=== PATIENT | female | born 1965 | race American Indian/Alaskan Native ===

== ENCOUNTER 2018-09-01 19:59 | Emergency (ER) | payer OTHER ==
[2018-09-01] MEDS ORDERED: IBUPROFEN 400 MG TAB ONE (21:30)
[2018-09-01] MEDS ORDERED: IBUPROFEN 200 MG TAB PO ONE (21:31)
--- NOTE | 2018-09-01 22:45 | ER ---
Nurse's Notes [facility] Name: Deyanira Grey Age: 52 yrs Sex: Female : 1965 Arrival Date: 09/01/2018 Time: 20:17 Bed 18 Private MD: Diagnosis: Cough;Fever, unspecified Presentation: 09/01 20:18 Presenting complaint: Child states: Patient has cough, headache, sore throat since lp1 yesterday; States her roommate was recently diagnosed with the Flu. Transition of care: patient was not received from another setting of care. Onset of symptoms was September 01, 2018. Risk Assessment: Do you want to hurt yourself or someone else? Patient reports no desire to harm self or others. Initial Sepsis Screen: Does the patient meet any 2 criteria? No. Patient's initial sepsis screen is negative. Does the patient have a suspected source of infection? No. Patient's initial sepsis screen is negative. Care prior to arrival: None. 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 - Social history:: Smoking status: Patient/guardian denies using tobacco. - Ebola Screening: : No symptoms or risks identified at this time. Screenin:21 Abuse screen: Denies threats or abuse. Denies injuries from another. Nutritional lp1 screening: No deficits noted. Tuberculosis screening: No symptoms or risk factors identified. Fall Risk None identified. Assessment: 20:25 General: Appears in no apparent distress. comfortable, Behavior is calm, cooperative, ca1 appropriate for age. Pain: Denies pain. Neuro: Level of Consciousness is awake, alert, obeys commands, Oriented to person, place, time, situation. Cardiovascular: Heart tones S1 S2 present Capillary refill < 3 seconds Patient's skin is warm and dry. Respiratory: Airway is patent Respiratory effort is even, unlabored, Respiratory pattern is regular, symmetrical, Breath sounds are clear bilaterally. GI: Abdomen is flat, non-distended, Bowel sounds present X 4 quads. Abd is soft and non tender X 4 quads. : No deficits noted. No signs and/or symptoms were reported regarding the genitourinary system. EENT: No deficits noted. No signs and/or symptoms were reported regarding the EENT system. Derm: Skin is intact, is healthy with good turgor, Skin is pink, warm \T\ dry. Musculoskeletal: Circulation, motion, and sensation intact. Capillary refill < 3 seconds. 21:00 Reassessment: Pt ambulated to restroom for BM. No gait disturbance noted. ca1 21:10 Reassessment: Patient appears in no apparent distress at this time. Patient is alert, ca1 oriented x 3, equal unlabored respirations, skin warm/dry/pink. 22:00 Reassessment: Patient appears in no apparent distress at this time. Patient is alert, ca1 oriented x 3, equal unlabored respirations, skin warm/dry/pink. Pt on videocall with friends and family. 22:50 Reassessment: Kept for observation after Rocephin shot. ca1 23:00 Reassessment: Patient appears in no apparent distress at this time. Patient is alert, ca1 oriented x 3, equal unlabored respirations, skin warm/dry/pink. 23:30 Reassessment: Patient understands discharge; Waiting for friend to arrive for ride home.lp1 Vital Signs: 20:20 BP 146 / 102; Pulse 97; Resp 18; Temp 100(O); Pulse Ox 98% on R/A; Weight 56.7 kg; lp1 Height 4 ft. 11 in. (149.86 cm); 21:25 BP 146 / 78; Pulse 65; Resp 17 S; Pulse Ox 98% on R/A; ca1 21:25 BP 144 / 89; Pulse 80; Resp 17 S; Temp 98.4(O); Pulse Ox 99% on R/A; ca1 22:00 BP 156 / 89; Pulse 96; Resp 18 S; Pulse Ox 98% on R/A; ca1 22:44 Temp 98.5(O); ca1 22:45 BP 146 / 81; Pulse 85; Resp 16 S; Temp 98.4(O); Pulse Ox 98% on R/A; ca1 23:35 BP 114 / 80; Pulse 72; Resp 18; Temp 98.9(O); Pulse Ox 98% on R/A; lp1 20:20 Body Mass Index 25.25 (56.70 kg, 149.86 cm) lp1 ED Course: 20:17 Patient arrived in ED. la1 20:20 Triage completed. lp1 20:20 Arm band placed on left wrist. lp1 20:30 Report given to JI Roberson. lp1 20:32 Patient has correct armband on for positive identification. Bed in low position. Call ca1 light in reach. Side rails up X2. Pulse ox on. NIBP on. Warm blanket given. 20:45 Karol Palafox RN is Primary Nurse. ca1 20:57 Deni Melo PA is PHCP. [facility] 20:57 Gordo Bernardo MD is Attending Physician. [facility] 22:15 No provider procedures requiring assistance completed. Urine collected: clean catch ca1 specimen, clear, Amount Voided: 180mL. Patient did not have IV access during this emergency room visit. 22:16 Chest Pa And Lat (2 Views) XRAY In Process Unspecified. EDMS Administered Medications: 21:20 Drug: Motrin Suspension 10 mg/kg Route: PO; ca1 22:44 Follow up: Temp 98.5 Oral; Response: No adverse reaction; Temperature is decreased ca1 22:50 Drug: Rocephin (cefTRIAXone) 1 grams Route: IM; Site: right gluteus; ca1 23:04 Follow up: Response: No adverse reaction ca1 Outcome: 22:44 Discharge ordered by . [facility] 23:45 Condition: good lp1 23:45 Discharge instructions given to patient, Instructed on discharge instructions, follow up and referral plans. medication usage, Demonstrated understanding of instructions, follow-up care, medications, Prescriptions given X 1. 09/02 00:22 Patient left the ED. bb Signatures: Dispatcher [employer] EDMS Deni Melo PA PA jmm Ballard, Brenda, RN RN bb Alaina Pisano RN RN lp1 Jeffery Hebert RN RN la1 Karol Palafox RN RN ca1 Corrections: (The following items were deleted from the chart) 09/01 20:22 20:21 PMHx: None; lp1 lp1 20:24 20:20 BP 146 / 102; Pulse 97bpm; Resp 18bpm; Pulse Ox 98% RA; 56.7 kg; Height 4 ft. 11 lp1 in.; BMI: 25.2; lp1
--- NOTE | 2018-09-01 22:45 | EDPHYS ---
Physician Documentation [facility] Name: Deyanira Grey Age: 52 yrs Sex: Female : 1965 Arrival Date: 09/01/2018 Time: 20:17 Bed 18 Private MD: ED Physician Gordo Bernardo HPI: 09/01 20:58 This 52 yrs old Other Female presents to ER via EMS with complaints of Flu Symptoms. jmm 20:58 The patient or guardian reports cough. Onset: The symptoms/episode began/occurred jmm gradually. This is a 52 year old female who presents to the ED with complaints of cough, congestion, headache, sore throat beginning yesterday worsening today with fever. Patient denies abdominal pain, denies vomiting, denies diarrhea. Patient states approx 6 days ago a friend of hers with similar symptoms coughed on her and hugged her. . 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 - Social history:: Smoking status: Patient/guardian denies using tobacco. - Ebola Screening: : No symptoms or risks identified at this time. ROS: 20:58 Constitutional: Negative for fever, chills, and weight loss, Cardiovascular: Negative jmm for chest pain, palpitations, and edema. 20:58 ENT: Positive for sore throat. 20:58 Respiratory: Positive for cough. 20:58 Abdomen/GI: Negative for abdominal pain. 20:58 Neuro: Positive for headache. 20:58 All other systems are negative. Exam: 20:58 Head/Face: atraumatic. Eyes: EOMI, no conjunctival erythema appreciated ENT: Moist jmm Mucus Membranes Neck: Trachea midline, Supple Chest/axilla: Normal chest wall appearance and motion. Cardiovascular: Regular rate and rhythm. No edema appreciated Respiratory: Normal respirations, no respiratory distress appreciated Abdomen/GI: Non distended, soft Back: Normal ROM Skin: General appearance color normal MS/ Extremity: Moves all extremities, no obvious deformities appreciated, no edema noted to the lower extremities Neuro: Awake and alert, normal gait Psych: Behavior is normal, Mood is normal, Patient is cooperative and pleasant 20:58 Constitutional: The patient appears in no acute distress, alert, awake. 20:58 ENT: TM's: erythema, that is mild, bilaterally, Posterior pharynx: erythema, that is jm mild. 20:58 Respiratory: the patient does not display signs of respiratory distress, Respirations: normal, Breath sounds: are clear throughout. Vital Signs: 20:20 BP 146 / 102; Pulse 97; Resp 18; Temp 100(O); Pulse Ox 98% on R/A; Weight 56.7 kg; lp1 Height 4 ft. 11 in. (149.86 cm); 21:25 BP 146 / 78; Pulse 65; Resp 17 S; Pulse Ox 98% on R/A; ca1 21:25 BP 144 / 89; Pulse 80; Resp 17 S; Temp 98.4(O); Pulse Ox 99% on R/A; ca1 22:00 BP 156 / 89; Pulse 96; Resp 18 S; Pulse Ox 98% on R/A; ca1 22:44 Temp 98.5(O); ca1 22:45 BP 146 / 81; Pulse 85; Resp 16 S; Temp 98.4(O); Pulse Ox 98% on R/A; ca1 23:35 BP 114 / 80; Pulse 72; Resp 18; Temp 98.9(O); Pulse Ox 98% on R/A; lp1 20:20 Body Mass Index 25.25 (56.70 kg, 149.86 cm) lp1 MDM: 20:58 Patient medically screened. [place] 22:42 Data reviewed: vital signs, nurses notes. Counseling: I had a detailed discussion with verona the patient and/or guardian regarding: the historical points, exam findings, and any diagnostic results supporting the discharge/admit diagnosis, radiology results, the need for outpatient follow up, to return to the emergency department if symptoms worsen or persist or if there are any questions or concerns that arise at home. ED course: Patient is alert and non toxic in appearance in the ED. Patient is advised to return to the ED if symptoms worsen. . 22:43 Data reviewed: lab test result(s), radiologic studies, plain films. [facility] 09/01 20:36 Order name: Flu; Complete Time: 21:19 kb 09/01 20:36 Order name: Strep; Complete Time: 21:19 kb 09/01 21:18 Order name: Throat Culture [facility] 09/01 21:19 Order name: Chest Pa And Lat (2 Views) XRAY [facility] 09/01 22:01 Order name: Urine Dipstick-Ancillary (obtain specimen); Complete Time: 22:34 [facility] 09/01 22:01 Order name: Urine Test (obtain specimen); Complete Time: 22:34 [facility] Administered Medications: 21:20 Drug: Motrin Suspension 10 mg/kg Route: PO; ca1 22:44 Follow up: Temp 98.5 Oral; Response: No adverse reaction; Temperature is decreased ca1 22:50 Drug: Rocephin (cefTRIAXone) 1 grams Route: IM; Site: right gluteus; ca1 23:04 Follow up: Response: No adverse reaction ca1 Disposition: 09/02 06:55 Co-signature as Attending Physician, Gordo Bernardo MD I agree with the assessment and tw4 plan of care. Disposition: 09/01/18 22:44 Discharged to Home. Impression: Cough, Fever, unspecified. - Condition is Stable. - Discharge Instructions: Cough, Adult. - Prescriptions for Zithromax Z- Herson 250 mg Oral Tablet - take 1 tablet by ORAL route as directed for 5 days Day 1 - take two (2) tablets one time. Day 2, 3, 4 , 5 take one (1) tablet once daily.; 6 tablet. - Medication Reconciliation Form, Thank You Letter, Antibiotic Education, Prescription Opioid Use, Work release form form. - Follow up: Private Physician; When: 1 - 2 days; Reason: Recheck today's complaints, Continuance of care, Re-evaluation by your physician. Signatures: Dispatcher [employer] EDVT Deni Melo PA PA Chantel Colunga, RN RN Alaina Green RN RN Gordo Elliott MD MD tw4 Karol Palafox RN RN ca1 Corrections: (The following items were deleted from the chart) 09/01 20:22 20:21 PMHx: None; [email or web address] 22:42 20:58 Head/Face: atraumatic. Eyes: EOMI, no conjunctival erythema appreciated ENT: [facility] Moist Mucus Membranes Neck: Trachea midline, Supple Chest/axilla: Normal chest wall appearance and motion. Cardiovascular: Regular rate and rhythm. No edema appreciated Respiratory: Normal respirations, no respiratory distress appreciated Abdomen/GI: Non distended, soft Back: Normal ROM Skin: General appearance color normal MS/ Extremity: Moves all extremities, no obvious deformities appreciated, no edema noted to the lower extremities Neuro: Awake and alert, normal gait Psych: Behavior is normal, Mood is normal, Patient is cooperative and pleasant [facility] 22:43 20:58 This is a 52 year old female who presents to the ED with complaints of cough, [facility] congestion, headache, sore throat beginning yesterday worsening today with fever. Patient denies abdominal pain, denies vomiting, denies diarrhea. . [facility] 09/02 00:22 09/01 22:44 09/01/2018 22:44 Discharged to Home. Impression: Cough; Fever, unspecified. bb Condition is Stable. Forms are Medication Reconciliation Form, Thank You Letter, Antibiotic Education, Prescription Opioid Use. Follow up: Private Physician; When: 1 - 2 days; Reason: Recheck today's complaints, Continuance of care, Re-evaluation by your physician. [facility]
[2018-09-01] MEDS ORDERED: LIDOCAINE 1% MPF 2 ML AMPULE ONE (22:59)
[2018-09-01] MEDS ORDERED: CEFTRIAXONE 1000 MG/VIAL ONE (22:59)
--- NOTE | 2018-09-02 07:15 | RAD REPORT ---
EXAM DESCRIPTION: RAD - Chest Pa And Lat (2 Views) - 09/01/2018 10:20 pm CLINICAL HISTORY: Cough, headache, fever COMPARISON: None. TECHNIQUE: PA and lateral views of the chest were obtained. FINDINGS: The lungs are underinflated. Right lung field is clear of a peripheral mass or consolidati on. Interstitial pattern is mildly prominent. This is probably baseline but could potentially mask a very minimal interstitial edema or infiltrate. Calcified plaquing is seen in the lateral left lung ba se. This can obscure a very minimal lateral left base infiltrate. Trachea is midline. Heart size is normal and central vasculature is within normal limits. No pleural effusion or pneumo thorax seen. No acute bony finding noted. No aortic abnormality. IMPRESSION: No acute cardiopulmonary process confirmed. Calcified pleural plaquing changes are present in the lateral left base.
== END 2018-09-02 00:22 | disposition home or self-care (01) ==
LOC: ER 19:59
DX: R05 Cough (principal); R50.9 Fever, unspecified; J02.9 Acute pharyngitis, unspecified
CPT/HCPCS: 71046; 87070; 87081; 87804; 96372; 99284; J2001